=== PATIENT | male | born 1955 | race Caucasian/White ===

== ENCOUNTER → 2017-11-28 | Outpatient (CLI) | payer BC ==
--- NOTE | 2017-11-28 12:04 | MR ---
EXAMINATION TYPE: MR lumbar spine wo con DATE OF EXAM: 11/28/2017 COMPARISON: NONE HISTORY: Low back pain per order. Pain for 25 years going into right foot and toe increased in severi ty over last 10 years per patient. TECHNIQUE: Multiplanar, multisequence imaging of the lumbar spine is performed without IV contrast. FINDINGS: Sagittal images of the lumbar spine show vertebral body heights and alignment to appear sat isfactory. There is multilevel disc desiccation. There is multilevel fairly moderate to advanced disc space narrowing. Multilevel posterior disc herniations are seen on sagittal images. The conus medul tashia is somewhat low in position ending at mid L2 level. No abnormal signal is seen. No suspicious c lumping of lumbosacral nerve roots is noted. There is heterogeneous endplate changes with Modic type II degenerative change noted L2-L3 level Modic type I degenerative change noted L5-S1 level. Axial images at T12-L1 level show left large paracentral/foraminal disc protrusion effacing anterolat eral thecal sac and lateral recess on axial image 27 and causing mild left-sided neural foraminal chon rowing. Right-sided neural foramen is patent. Axial images at L1-L2 level show mild to moderate broad disc bulge mildly effacing anterior thecal sa c. Bilateral neural foramina are patent. Axial images at L2-L3 level show mild/moderate broad disc bulge mildly effacing anterior thecal sac a nd causing mild bilateral anterior inferior neural foraminal narrowing. Axial images at L3-L4 level show mild/moderate broad disc bulge effacing anterior thecal sac and caus ing mild bilateral anterior inferior neural foraminal narrowing. Mild facet arthropathy bilaterally a t this level is present. Axial images at L4-L5 level show mild/moderate broad disc bulge and mild facet degenerative changes b ilaterally. There is mild effacement anterior thecal sac and mild bilateral anterior inferior neural foraminal narrowing. Axial images at L5-S1 level show mild to moderate facet degenerative changes bilaterally. There is mo derate broad-based posterior disc protrusion. There is minimal effacement anterior thecal sac. There is moderate left and mild to moderate right-sided inferior neural foraminal narrowing noted some encr oachment left L5 nerve is difficult to exclude on axial image 3 and sagittal image 2. No suspicious retroperitoneal findings are seen. 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
== END | disposition home or self-care (01) ==
LOC: RADMRIMAIN 10:54
PROVIDERS: ATTEND Psychiatry & Neurology Neurology
DX: M47.816 Spondylosis without myelopathy or radiculopathy, lumbar region (principal)
CPT/HCPCS: 72148